=== PATIENT | male | born 2005 | race Caucasian/White ===

== ENCOUNTER 2023-12-27 21:42 | Emergency (ER) | payer BC, SELFPAY ==
[2023-12-27 21:42] VITALS: BMI 25.1
[2023-12-27 21:44] VITALS: BP 131/89
--- NOTE | 2023-12-27 23:02 | ED.MUSCINJ ---
HPI-Injury
General
Chief Complaint: Musculo-Skeletal Complaint
Source: patient
Exam Limitations: none
Time Seen by Provider: 12/27/23 22:56
Travel History
Have you had any contact with someone who has COVID-19?: No
Do you have any symptoms of coronavirus? Fever > 100 degrees, chills, cough, shortness of breath, sore throat, loss of taste or smell, muscle aches, or headache?: No
History of Present Illness-Injury
Is this injury a work related problem?: No
Is pt an associate of [facility]?: No
Initial Injury comments:
This is a 18 year old male that comes in with c/o pain in the right ankle pain. States that he was playing basketball and he heart the loudest crack. States that he was unable to walk on the ankle. States that he did fall down but did not hit his
head or have any LOC. Denies any fever, chills, nausea, vomiting, diarrhea, headache, dizziness.
Past History
Past History
ED Past Medical History: None
ED Past Surgical History: None
Social History
Tobacco: Non-smoker
Alcohol: Occasional
Personal: Single
Living: with family
Review of Systems
Review of Systems
All Other Systems: ROS reviewed and negative except as documented in HPI and ROS
Constitutional: Reports no symptoms; Denies fever or chills
EENT: Reports no symptoms
Respiratory: Reports no symptoms
Cardiac: Reports no symptoms
ABD/GI: Reports no symptoms; Denies abdominal pain, nausea, vomiting or diarrhea
: Reports no symptoms
Musculoskeletal: Reports joint pain (Right ankle pain)
Skin: Reports no symptoms
Neurological: Reports no symptoms; Denies dizzy or headache
Psychiatric: Reports no symptoms
Musculoskeletal Injury Exam
Musculoskeletal Injury Exam
Left Lateral Ankle:
Pain with Movement?: Mild
Tender to palpation?: Mild
Soft tissue swelling?: Mild
External deformity and angulation?: None
Joint effusion?: None
Contusion?: None
Hematoma-local bleeding into tissue?: None
Strain- Sprain- Tear (Connective tissue injury)?: None
Crepitus with movement?: No
Joint instability?: No
Malalignment/deformity?: No
Range of motion: Limited (Due to pain)
Distal skin color and temperature: normal-warm & good color
Capillary Refill: normal
Normal distal neurovascular exam?: Yes
Phy Exam
General Physical Exam
General Presentation: well appearing and no apparent distress
General age: appears stated age
General Skin: warm and dry
General Habitus: normal
General Mental: alert
Eye Exam
Eye Exam: EOMI
Musculoskeletal Exam
Musculoskeletal Exam: other (right ankle tender to palpation on the lateral aspect at the base of lateral malleolus. Patient can flex ankle but feels that he can't rotate the ankle. )
Skin Exam
Skin Exam: normal color, warm/dry, no rash and no petechia
Psychiatric Exam
Psychiatric Exam: normal mood/affect
Injury Course
Orders/Labs/Results
Orders:
Orders
12/27/23 21:46
Ankle, Right 3 view CR [CR Ankle - Right Min 3 Views *] Urgent
Comment:
Reason For Exam: injury
12/27/23 23:01
Christopher Wrap Right-Treatment ONCE
Air Splint Right-Treatment ONCE
Crutches-Treatment ONCE
Ibuprofen [Motrin] 600 mg PO NOW STA
MDM/Problems Addressed
Differential Diagnosis Includes:
Ankle sprain. ankle Fracture
MDM/Problems Addressed:
This is a 18 year old male that comes in with c/o right ankle pain after he rolled his ankle when playing basketball. States that he has pain on the outside of his ankle.
Will get X-ray.
Explained that there are no fracture or dislocation. Will have patient use ice for the next 24 hours. Will give an christopher and air splint with crutches. If after 5-7 days patient feels that he is not getting any better he will need to see the Orthopedic
specialist for further evaluation. Patient to use Ibuprofen for pain. Patient to return with any concerns.
Chronic conditions affecting care:
NA
Acute Exacerbation and/or Progression of Chronic Illness:
NA
*Radiology
Radiology exam reviewed: radiology read reviewed (Ankle-No fracture, NO dislocation. Minimal soft tissue swelling. )
*Pulse Oximetry
Patient hypoxic: no
*EKG
Interpreted by ED Provider?: NA
Rate: EKG- N/A
*Milk Handler Interpretation
Rate: Milk Handler- N/A
*Critical Care Note
Total Time (30-74mins, 75-104mins- exclusive of procedures): Not Applicable
ED Attending Note
-
Portions of this chart may have been created with voice recognition software.� Occasional wrong word or��sound alike� substitutions may have occurred due to the inherent limitations of voice recognition software.
Discharge Plan
Departure
Patient Disposition: Home (Routine Discharge)
Date of Disposition: 12/27/23
Time of Disposition: 23:11
Patient with high blood pressure during this ER visit?: Yes
Condition: Good
Covid-19: Not Applicable
Discharge Problem:
Right ankle sprain
Instructions: Ankle Sprain (DC), How to Use Crutches, Ankle air splint and elastic bandage, BLOOD PRESSURE, RICE Therapy
Referrals:
Sin Venegas MD [Active] - Follow up in 5-7 days
Activity Restrictions/Additional Instructions:
As discussed, your X-ray is negative for any fracture or dislocation. Please use the air splint when you are up walking around and weight bare as tolerated. Ice for the next 24 hours on and off. Ibuprofen 600mg every 6 hours for pain. Elevated when
sitting around. If you feel that you are not getting any better in the next 5-7 days you will need to see the medicaid eligibility specialist for further evaluation. IF YOU HAVE ANY OTHER CONCERNS PLEASE RETURN TO THE EMERGENCY ROOM.
Interventions
Interventions:
*General Assessment Last Done: 12/27/23 21:44
*ED COVID-19 Vaccine History Last Done: 12/27/23 21:44
Discharge Date and Time
Print Language: NAURUAN
[2023-12-27] MEDS: MOTRIN 600 MG PO (23:27)
== END 2023-12-28 00:17 | disposition home or self-care (01) ==
LOC: EMR 21:42
PROVIDERS: EMERGENCY PHYSICIAN Emergency Medicine; FAMILY PHYSICIAN Physician Assistant Medical
DX: S93.401A Sprain of unspecified ligament of right ankle, initial encounter (principal); X58.XXXA Exposure to other specified factors, initial encounter; R03.0 Elevated blood-pressure reading, without diagnosis of hypertension; Y93.67 Activity, basketball
CPT/HCPCS: 99283; 73610